=== PATIENT | male | born 1995 | race African-American/Black ===

== ENCOUNTER 2020-10-31 11:00 | Emergency (ER) | payer SELFPAY ==
[2020-10-31 11:06] VITALS: BP 153/76; PULSE 74; RESP 17; TEMP 36.4; O2SAT 99
--- NOTE | 2020-10-31 11:27 | ED.GENADULT ---
HPI - General Adult General Chief complaint: Unspecified Stated complaint: possible strep Time Seen by Provider: 10/31/20 11:09 Source: patient Mode of arrival: ambulatory Limitations: no limitations History of Present Illness HPI narrative: Patient presents for evaluation of sore throat since 0100 this morning. He has a history of recurrent strep pharyngitis and this feels similar. No fever, chills, nausea, vomiting, respiratory symptoms. No history of Covid. He has not received his Covid vaccination. He tried taking NyQuil with some improvement in the symptoms thereafter. No recent sick contacts. No additional complaints or concerns. Related Data Home Medications Medication Instructions Recorded Confirmed valacyclovir 10/31/20 Allergies Allergy/AdvReac Type Severity Reaction Status Date / Time nickel Allergy Rash Verified 10/31/20 11:19 Review of Systems Review of Systems: Narrative: CONSTITUTIONAL: Denies fever, chills, or sweats. EYES: Denies visual changes, redness, or discharge. ENT: Reports sore throat. Denies rhinorrhea, congestion, otalgia CARDIOVASCULAR: Denies chest pain, palpitations, or edema. RESPIRATORY: Denies cough or dyspnea. GASTROINTESTINAL: Denies abdominal pain, nausea, vomiting, or diarrhea. GENITOURINARY: Denies dysuria or hematuria. SKIN: Denies rash or itching. MUSCULOSKELETAL: Denies back pain, joint pain, or myalgia. NEUROLOGIC: Denies headache, numbness, dizziness, or weakness. PSYCHIATRIC: Denies anxiety or depression. PMFSH Past Medical History Medical History (Updated 10/31/20 @ 11:41 by Adrian Valenzuela, KODY, ) Sore throat Surgical History Surgical History No pertinent past surgical history Family History Family History Mother Asthma Social History Social History Substance use: never Living arrangements: with family Gender identity (if verbalized by the patient): Male Spiritual care concerns: No Exam Narrative: Exam Narrative: GENERAL: Well-appearing, well-nourished, and in no acute distress. HEAD: Normocephalic, atraumatic. EYES: PERRLA and EOMI. ENT: Nares clear, no rhinorrhea or epistaxis. Mucous membranes moist. Mild bilateral tonsillar enlargement with erythema but no exudate. Uvula is midline. No trismus. Bilateral TMs pearly christine nonbulging NECK: Supple. No adenopathy or masses. No carotid bruits or JVD CHEST: Clear to auscultation. No respiratory distress. No wheezes rales or rhonchi HEART: Regular rate and rhythm. No murmur heard. Normal peripheral pulses. ABDOMEN: Soft, nontender, nondistended, normal active bowel sounds. EXTREMITIES: Normal range of motion. No edema. SKIN: Warm, dry, no rash. NEURO: No focal deficits. Alert and oriented x3. PSYCH: Normal mood and affect. Course Course Emergency Course: This is a 24-year-old male with history of recurrent tonsillitis who presented with sore throat since this morning. His vital signs are stable. Strep swab was negative. However exam is somewhat concerning for strep pharyngitis we will treat with penicillin. Advised follow-up and return for any worsening symptoms. Vital Signs Vital signs: Vital Signs Temperature 36.4 C 10/31/20 11:06 Pulse Rate 74 10/31/20 11:06 Respiratory Rate 17 10/31/20 11:06 Blood Pressure 153/76 H 10/31/20 11:06 Pulse Oximetry 99 10/31/20 11:06 Temperature 36.4 C 10/31/20 11:06 Pulse Rate 74 10/31/20 11:06 Respiratory Rate 17 10/31/20 11:06 Blood Pressure 153/76 H 10/31/20 11:06 Pulse Oximetry 99 10/31/20 11:06 Medical Decision Making Differential Diagnosis Differential Diagnosis: Strep pharyngitis versus viral pharyngitis versus peritonsillar abscess versus gonococcal pharyngitis versus other Medical Records Medical records r
== END 2020-10-31 11:51 | disposition home or self-care (01) ==
PROVIDERS: Emergency Provider Nurse Practitioner
DX: J02.9 Acute pharyngitis, unspecified (principal)
CPT/HCPCS: 87081; 87880; 99283